=== PATIENT | female | born 1995 | race Caucasian/White ===

== ENCOUNTER 2020-10-01 06:00 | Inpatient (IN) ==
[2020-10-01 06:30] LABS: Bacteria,Urine Occasional /HPF (Few); Bilirubin,Urine Negative (Negative); Blood, Urine Small mg/dL (Negative); Glucose,Urine (UA) Negative (Negative); Ketones,Urine Negative (Negative); Mucus,Urine Few /LPF (Occasional); Nitrite,Urine Negative (Negative); Protein,Urine Negative; RBC,Urine 2 /HPF (0-4); Squamous Epithelial Cell,Urine Occasional /HPF (0-10); Urine Appearance CLEAR (Clear); Urine Color Yellow (Yellow); Urine Specific Gravity 1.015 (1.001-1.035); Urine Urobilinogen < 2.0 EU/DL (0.2-1.0); WBC,Urine 12 /HPF (0-6)
[2020-10-01] MEDS ORDERED: MEPERIDINE 50 MG/1 ML VIAL IV PRN (07:13)
[2020-10-01] MEDS ORDERED: BUTORPHANOL 2 MG/ML VIAL IV PRN (07:13)
[2020-10-01] MEDS ORDERED: ONDANSETRON 4 MG/2 ML VIAL IV PRN ×2 (07:13→11:31)
[2020-10-01] MEDS ORDERED: ePHEDrine 50 MG/ML VIAL IV PRN ×2 (07:17)
[2020-10-01] MEDS ORDERED: NALOXONE 0.4 MG/ML VIAL IV PRN (07:17)
[2020-10-01] MEDS ORDERED: diphenhydrAMINE 50 MG/1 ML VIAL IV PRN ×2 (07:17)
[2020-10-01] MEDS ORDERED: PROMETHAZINE 25 MG/1 ML VIAL IM PRN (07:17)
[2020-10-01] MEDS ORDERED: LACTATED RINGERS 1,000 ML IV ONE (07:17)
[2020-10-01] MEDS ORDERED: hydrOXYzine HCL 25 MG/1 ML VIAL IM PRN (07:17)
[2020-10-01] MEDS ORDERED: OXYTOCIN/LR 20 UNIT/1,000 ML BAG IV SCH (07:30)
[2020-10-01] MEDS ORDERED: fentaNYL 2 MCG/ROPIV 0.2% EPID 100 ML EPIDURAL SCH (07:30)
[2020-10-01] MEDS ORDERED: FAMOTIDINE 20 MG/2 ML VIAL IV ONE (07:30)
[2020-10-01] MEDS ORDERED: CITRIC ACID/SODIUM CITRATE 30 ML UDCUP PO ONE (07:30)
[2020-10-01] MEDS ORDERED: LACTATED RINGERS 1,000 ML IV SCH (07:30)
[2020-10-01 07:37] LABS: Basophils # 0.1 10*3/uL (0.0-0.2); Basophils % 0.6 % (0.0-0.8); Eosinophils # 0.1 10*3/uL (0.0-0.87); Eosinophils % 0.9 % (0.00-10.9); Hematocrit 32.9 VOL% (35.7-47.0); Hemoglobin 10.7 GM/DL (12.0-16.0); Immature Granulocytes % 1.9 %; Immature Granulocytes Absolute 0.25 #; Lymphocytes # 3.1 10*3/uL (1.4-4.0); Lymphocytes % 23.4 % (21.3-54.2); Mean Corpuscular HGB Conc 32.5 GM/DL (32-36); Mean Corpuscular Volume 89.2 FL (87-102); Monocytes % 7.4 % (1.7-12.7); Neutrophils % 65.8 % (38.7-73.9); Platelet Count 299 T/CUMM (130-400); Red Blood Count 3.69 MC/CUMM (3.8-5.5); Red Cell Distribution Width 12.9 % (9.3-17.3); White Blood Count 13.2 T/CUMM (4-12)
[2020-10-01 08:21] LABS: Albumin 2.7 G/DL (3.4-5.0); Bilirubin,Total 0.4 MG/DL (0.2-1.0); Calcium 8.4 MG/DL (8.5-10.1); Osmolality,Calculated 264.2 MOS/KG (273-304); Potassium 3.9 MMOL/L (3.5-5.1); Total Protein 6.8 G/DL (6.4-8.3)
[2020-10-01 09:29] LABS: Glucose,Urine (UA) Negative (Negative); Protein,Urine Negative; Urine Appearance Clear (Clear); Urine Color Yellow (Yellow); Urine Specific Gravity 1.015 (1.001-1.035)
[2020-10-01 09:30] LABS: Bilirubin,Urine Negative (Negative); Blood, Urine Negative (Negative); Ketones,Urine Negative (Negative); Nitrite,Urine Negative (Negative); Urine Urobilinogen 0.2 EU/DL (0.2-1.0)
[2020-10-01] MEDS ORDERED: TRANEXAMIC ACID 1,000 MG/10 ML VIAL ONE (10:06)
[2020-10-01] MEDS ORDERED: miSOPROStoL 200 MCG TABLET ONE (10:06)
[2020-10-01] MEDS ORDERED: CARBOPROST TROMETHAMINE 250 MCG/ML AMP IM ONE (10:07)
[2020-10-01] MEDS ORDERED: OXYTOCIN/LR 20 UNIT/1,000 ML BAG IV ONE ×2 (10:07→11:31)
[2020-10-01] MEDS ORDERED: METHYLERGONOVINE 0.2 MG/1 ML AMP ONE (10:07)
[2020-10-01] MEDS ORDERED: NEOSTIGMINE 10 MG/10 ML VIAL ONE (11:18)
[2020-10-01] MEDS ORDERED: ATROPINE 0.4 MG/1 ML VIAL ONE ×2 (11:18→11:34)
[2020-10-01] MEDS ORDERED: SODIUM CHLORIDE 0.9% 200 ML IV ONE (11:18)
[2020-10-01] MEDS ORDERED: RHO(D) IMMUNE GLOBULIN 300 MCG SYRINGE IM ONE (11:31)
[2020-10-01] MEDS ORDERED: LANOLIN 50% CREAM 0.3 OZ TUBE TOP PRN (11:31)
[2020-10-01] MEDS ORDERED: ACETAMINOPHEN 325 MG TABLET PO PRN (11:31)
[2020-10-01] MEDS ORDERED: BENZOCAINE 20%/MENTHOL 0.5% SPRAY 56 GM CAN TOP PRN (11:31)
[2020-10-01] MEDS ORDERED: oxyCODONE/ACETAMINOPHEN 5-325 MG TABLET PO PRN (11:31)
[2020-10-01] MEDS ORDERED: HYDROCORTISONE 2.5% RECTAL CREAM 30 GM TUBE TOP PRN (11:31)
[2020-10-01] MEDS ORDERED: DIPH/TET/ACEL PERT BOOSTER VACCINE 0.5 ML VIAL IM ONE (11:31)
[2020-10-01] MEDS ORDERED: WITCH HAZEL PADS 100/JAR TOP PRN (11:31)
[2020-10-01] MEDS ORDERED: MEASLES/MUMPS/RUBELLA VACCINE 0.5 ML VIAL SUBCUT ONE (11:31)
[2020-10-01] MEDS ORDERED: BISACODYL 10 MG SUPP RECTAL PRN (11:31)
[2020-10-01 11:55] LABS: Cord Arterial Blood HCO3 20.1 MMOL/L
[2020-10-01 11:59] LABS: Cord Venous Blood PCO2 46.6 MMHG; Cord Venous Blood PO2 24.7
[2020-10-01] MEDS: IBUPROFEN 800 MG TABLET PO PRN (15:25)
[2020-10-01] MEDS: oxyCODONE/ACETAMINOPHEN 5-325 MG TABLET PO PRN (16:12)
[2020-10-01] MEDS: DOCUSATE SODIUM 100 MG CAPSULE PO SCH (20:52)
[2020-10-02] MEDS: IBUPROFEN 800 MG TABLET PO PRN ×2 (03:27→18:12)
[2020-10-02] MEDS: oxyCODONE/ACETAMINOPHEN 5-325 MG TABLET PO PRN ×2 (04:37→15:50)
[2020-10-02 07:25] LABS: Basophils # 0.1 10*3/uL (0.0-0.2); Basophils % 0.5 % (0.0-0.8); Eosinophils # 0.1 10*3/uL (0.0-0.87); Eosinophils % 0.6 % (0.00-10.9); Hematocrit 33.6 VOL% (35.7-47.0); Immature Granulocytes Absolute 0.16 #; Lymphocytes # 3.7 10*3/uL (1.4-4.0); Lymphocytes % 23.6 % (21.3-54.2); Mean Corpuscular HGB Conc 32.7 GM/DL (32-36); Mean Corpuscular Volume 88.9 FL (87-102); Mean Platelet Volume 10.1 FL (9.6-12.0); Neutrophils % 69.3 % (38.7-73.9); Platelet Count 284 T/CUMM (130-400); Red Blood Count 3.78 MC/CUMM (3.8-5.5); White Blood Count 15.7 T/CUMM (4-12)
[2020-10-02] MEDS ORDERED: BUTALBITAL/ACETAMIN/CAFFEINE 50-325-40 MG TABLET PO PRN (09:52)
[2020-10-02] MEDS: DOCUSATE SODIUM 100 MG CAPSULE PO SCH ×2 (10:23→21:21)
[2020-10-02] MEDS ORDERED: LACTATED RINGERS 1,000 ML IV SCH (11:00)
[2020-10-03 07:18] VITALS: BP 108/69
[2020-10-03] MEDS: DOCUSATE SODIUM 100 MG CAPSULE PO SCH (09:38)
== END 2020-10-03 13:30 | disposition home or self-care (01) | DRG 560 ==
LOC: N.LDOUT 06:00 → N.LD 06:01 → N.OB 15:12
PROVIDERS: ADMIT Specialist; ATTEND Specialist